=== PATIENT | female | born 1990 | race Caucasian/White ===

== ENCOUNTER 2019-03-04 13:52 | Emergency (ER) | payer OTHER ==
[~2019-03-04] VITALS: Ht 162.6 cm; Wt 74.5 kg
[2019-03-04] MEDS ORDERED: KETOROLAC 60 MG/2 ML VIAL (J1885) IM ONE (15:00)
[2019-03-04 15:13] LABS: BASO % 0.3 % (0.0-1.0); EOS % 0.3 % (0.0-3.0); HEMATOCRIT 45.9 % (36.0-47.0); HEMOGLOBIN 15.6 g/dl (12.0-15.5); LYMPH # 2.7 10^3/uL (1.5-6.5); LYMPH % 30.4 % (24.0-44.0); MEAN CORPUSCULAR HEMOGLOBIN 33.7 pg (27.0-33.0); MEAN CORPUSCULAR VOLUME 99.1 fl (80.0-96.0); MONO # 0.5 10^3/uL (0.0-0.8); MONO % 5.7 % (0.0-5.0); NEUTROPHILS # 5.6 10^3/uL (1.8-7.7); PLATELET COUNT, AUTOMATED 257 10^3/uL (150-450); RED BLOOD COUNT 4.63 10^6/uL (4.00-5.40)
[2019-03-04 15:29] LABS: BLOOD UREA NITROGEN 11 MG/DL (7-18); CALCIUM LEVEL 8.7 MG/DL (8.5-10.1); CARBON DIOXIDE LEVEL 27 MEQ/L (21-32); CHLORIDE LEVEL 106 MEQ/L (98-107); CREATININE FOR GFR 0.75 MG/DL (0.55-1.30); GLOMERULAR FILTRATION RATE > 60.0 (>60); GLUCOSE, FASTING 84 MG/DL (70-100); POTASSIUM SERUM 4.1 MEQ/L (3.5-5.1); SODIUM LEVEL 140 MEQ/L (136-145)
[2019-03-04 15:30] LABS: C REACTIVE PROTEIN QUANTITATIV < 0.30 MG/DL (0.00-0.30)
[2019-03-04 15:46] LABS: ERYTHROCYTE SEDIMENTATION RATE 4 mm/hr (0-20)
[2019-03-04] MEDS ORDERED: KETO10TAB PO (16:15)
[2019-03-04 16:30] VITALS: BP 126/83
--- NOTE | 2019-03-05 20:07 | ECGEPIP ---
[facility] - ED Test Date: 2019-03-04 Pat Name: SAY MARROQUIN Department: Room: - Gender: Female [employer]: LENCHO : 1990 Requested By: PERRY Brody Order Number: [id number] Reading MD: Allan Gomez Measurements Intervals [place] Rate: 67 P: 28 DE: 168 QRS: 78 QRSD: 93 T: 48 QT: 415 QTc: 439 Interpretive Statements SINUS RHYTHM INCOMPLETE RIGHT BUNDLE BRANCH BLOCK BENIGN EARLY REPOLARIZATION NO PRIORS FOR COMPARISON Electronically Signed on 03-05-2019 20:07:00 EDT by Allan Gomez
--- NOTE | 2019-03-06 08:29 | REP ---
PA and lateral chest: There are no comparisons. The lung stark are clear. The cardiac size is normal. The megan, mediastinum, and skeletal structures are unremarkable. Impression: Negative PA and lateral chest. Electronically Signed by Sulaiman Priest MD 03/04/2019 03:15 P
== END 2019-03-04 16:31 | disposition home or self-care (01) ==
LOC: M ED 13:52
DX: M94.0 Chondrocostal junction syndrome [Tietze] (principal); F17.210 Nicotine dependence, cigarettes, uncomplicated
CPT/HCPCS: 36415; 71046; 80048; 85025; 85652; 86140; 93005; 96372; 99284; G0463; J1885